=== PATIENT | male | born 1975 | race Two or more races ===

== ENCOUNTER 2017-05-13 02:23 | Observation (INO) | payer OTHER ==
[~2017-05-13] VITALS: Ht 177.8 cm; Wt 96.1 kg
[2017-05-13] VITALS (10 sets, daily range): BP systolic 119–130; BP diastolic 70–89; PULSE 77–96; RESP 18–20; Ht 177.8 cm; Wt 96.1 kg
[2017-05-13] MEDS ORDERED: ALPR0.25 PO (05:25)
[2017-05-13] MEDS ORDERED: VAL2 PO (05:25)
[2017-05-13] MEDS ORDERED: EZET10TA3 PO (05:25)
[2017-05-13] MEDS ORDERED: GEMF600T60 PO (05:25)
[2017-05-13] MEDS ORDERED: VALS160T20 PO (05:25)
[2017-05-13 09:19] LABS: BASOPHILS % 0.4 % (0.0-2.0); EOSINOPHILS # 0.3 10^3/ul (0.0-0.5); EOSINOPHILS % 3.7 % (0.0-7.0); HEMATOCRIT 39.3 % (42.0-52.0); HEMOGLOBIN 12.8 g/dl (14.0-18.0); LYMPHOCYTES # 2.3 10^3/ul (0.8-2.9); LYMPHOCYTES % 29.3 % (15.0-51.0); MEAN CORPUSCULAR HGB CONC 32.6 g/dl (32.0-37.0); MEAN CORPUSCULAR VOLUME 79.9 fl (82.0-101.0); MEAN PLATELET VOLUME 8.8 fl (7.4-10.4); MONOCYTE # 0.7 10^3/ul (0.3-0.9); MONOCYTES % 8.8 % (0.0-11.0); NEUTROPHIL # 4.5 10^3/ul (1.6-7.5); NEUTROPHILS % 57.3 % (39.0-77.0); PLATELET COUNT 336 10^3/UL (140-415); RED BLOOD COUNT 4.92 10^6/ul (4.70-6.10); RED CELL DISTRIBUTION WIDTH 13.4 % (11.5-14.5); WHITE BLOOD COUNT 7.8 10^3/ul (4.8-10.8)
[2017-05-13 09:46] LABS: ALANINE AMINOTRANSFERASE 55 IU/L (13-69); ALBUMIN 3.8 g/dl (3.3-4.9); ALBUMIN/GLOBULIN RATIO 1.46; ALKALINE PHOSPHATASE 55 IU/L (42-121); ANION GAP 14 (8-16); ASPARTATE AMINO TRANSFERASE 28 IU/L (15-46); BILIRUBIN,INDIRECT 0.2 mg/dl (0-1.1); BILIRUBIN,TOTAL 0.2 mg/dl (0.2-1.3); BLOOD UREA NITROGEN 13 mg/dl (7-20); CALCIUM 8.4 mg/dl (8.4-10.2); CARBON DIOXIDE 24 mmol/L (21-31); CHLORIDE 107 mmol/L (97-110); CREATININE 0.77 mg/dl (0.61-1.24); GLUCOSE 94 mg/dl (70-220); POTASSIUM 4.2 mmol/L (3.5-5.1); SODIUM 141 mmol/L (135-144); TOTAL PROTEIN 6.4 g/dl (6.1-8.1)
[2017-05-13 09:53] LABS: D-DIMER < 220.00 ng/ml (<460)
[2017-05-13 09:56] LABS: TROPONIN-I < 0.012 ng/ml (0.00-0.12)
[2017-05-13] MEDS ORDERED: ZOLPIDEM 5 MG TAB PO PRN (14:00)
[2017-05-13] MEDS ORDERED: BISACODYL 10 MG SUPP PR PRN (14:00)
[2017-05-13] MEDS ORDERED: NITROGLYCERIN (SL) 0.4 MG TAB SL PRN (14:00)
[2017-05-13] MEDS ORDERED: clonAZEPAM 0.5 MG TAB PO PRN (14:00)
[2017-05-13] MEDS ORDERED: LORAZEPAM 0.5 MG TAB PO PRN (14:00)
[2017-05-13] MEDS ORDERED: NACL 0.9% 3 ML SYG IV SCH (14:00)
[2017-05-13] MEDS ORDERED: DOCUSATE SODIUM 100 MG CAP PO PRN (14:00)
[2017-05-13] MEDS ORDERED: ACETAMINOPHEN 325 MG TAB PO PRN (14:00)
[2017-05-13] MEDS ORDERED: morphine 2 MG INJ IV PRN (14:00)
[2017-05-13] MEDS ORDERED: MAGNESIUM HYDROXIDE 30ML CUP PO PRN (14:00)
[2017-05-13] MEDS ORDERED: ONDANSETRON 4 MG INJ IV PRN (14:00)
[2017-05-13] MEDS ORDERED: HYDROCODONE/APAP (5/325) TAB PO PRN (14:00)
--- NOTE | 2017-05-13 14:50 | CONS ---
Date/Time of Note Date/Time of Note DATE: 05/13/17 TIME: 14:44 Assessment/Plan Assessment/Plan Additional Assessment/Plan Palpitations and elevated blood pressure History of hypertension History of dyslipidemia -Patient with symptoms of palpitations, pulsations in his neck and chest usually associated with stress and elevated blood pressure. Serial cardiac enzymes have been negative initial troponin at outside hospital emergency room and one done here this morning. Serial ECGs with no significant ischemic abnormalities. Patient denies any symptoms with exertion. Echocardiogram pending. Continue telemetry monitoring. Consultation Date/Type/Reason Admit Date/Time May 13, 2017 at 04:55 Type of Consultation: cv Reason for Consultation Cardiology evaluation Hx of Present Illness This is a 41-year-old male with past medical history of hypertension, dyslipidemia presents with multiple complaints over the past 2 months. Patient does admit to significant increased stressors at home regards to marriage issues and financial issues. He has noticed progressive increase in blood pressure. With his increase in blood pressure, he has been having episodes of palpitations and feeling pulsations in his throat and head. Does at times get shortness of breath with these episodes. He denies exertional chest discomfort. He gets occasional shortness of breath but he does admit to starting tobacco use. His symptoms worsened yesterday after stressful incident at home and his blood pressure as per the patient was 160/120. Because of the above, he came to the emergency room for evaluation care. He is currently feeling better. 12 point review of systems was performed with all pertinent positives and negatives mentioned above and all else is negative Past Medical History Medical History: high cholesterol, hypertension Social History Smoking Status: Current some day smoker Exam/Review of Systems Vital Signs Vitals Vital Signs Date Time Temp Pulse Resp B/P Pulse Ox O2 Delivery O2 Flow Rate FiO2 05/13/17 12:03 83 05/13/17 11:22 97.8 20 121/82 98 05/13/17 05:44 Room Air Exam No apparent distress Constitutional: alert, oriented Head: normocephalic Respiratory: clear to auscultation, normal air movement Cardiovascular: other (S1-S2 heard, no murmurs appreciated), regular rate and rhythm Gastrointestinal: bowel sounds, non-tender, soft Extremities: other (No significant edema) Results Result Diagram: 05/13/17 0849 05/13/17 0849 Results 24 hrs Laboratory Tests Test 05/13/17 08:49 White Blood Count 7.8 Red Blood Count 4.92 Hemoglobin 12.8 L Hematocrit 39.3 L Mean Corpuscular Volume 79.9 L Mean Corpuscular Hemoglobin 26.0 L Mean Corpuscular Hemoglobin Concent 32.6 Red Cell Distribution Width 13.4 Platelet Count 336 Mean Platelet Volume 8.8 Neutrophils % 57.3 Lymphocytes % 29.3 Monocytes % 8.8 Eosinophils % 3.7 Basophils % 0.4 Nucleated Red Blood Cells % 0.0 Neutrophils # 4.5 Lymphocytes # 2.3 Monocytes # 0.7 Eosinophils # 0.3 Basophils # 0.0 Nucleated Red Blood Cells # 0.0 Erythrocyte Sedimentation Rate 2.0 D-Dimer < 220.00 D-Dimer Comment Sodium Level 141 Potassium Level 4.2 Chloride Level 107 Carbon Dioxide Level 24 Anion Gap 14 Blood Urea Nitrogen 13 Creatinine 0.77 Glucose Level 94 Calcium Level 8.4 Total Bilirubin 0.2 Direct Bilirubin 0.00 Indirect Bilirubin 0.2 Aspartate Amino Transf (AST/SGOT) 28 Alanine Aminotransferase (ALT/SGPT) 55 Alkaline Phosphatase 55 Troponin I < 0.012 Total Protein 6.4 Albumin 3.8 Globulin 2.60 Albumin/Globulin Ratio 1.46 Medications Medications Current Medications Ondansetron HCl (Zofran Inj) 4 mg Q6H PRN IV NAUSEA AND/OR VOMITING; Start at 14:00 Aspirin (Aspirin) 81 mg DAILY PO ; Start 05/14/17 at 09:00 Nitroglycerin (Nitroglycerin (Sl Tab) 0.4 Mg) 1 tab Q5M PRN SL CHEST PAIN; Start 05/13/17 at 14:00 Acetaminophen (Tylenol Tab) 650 mg Q6H PRN PO PAIN LEVEL 1-3 OR FEVER; Start 05/13/17 at 14:00 Acetaminophen/ Hydrocodone Bitart ([place] (5/325)) 1 tab Q6H PRN PO PAIN LEVEL 4 -6; Start 05/13/17 at 14:00 Morphine Sulfate (morphine) 2 mg Q4H PRN IV PAIN LEVEL 7-10; Start 05/13/17 at 14:00 Zolpidem Tartrate (Ambien) 5 mg QHS PRN PO INSOMNIA; Start 05/13/17 at 14:00 Docusate Sodium (Colace) 100 mg Q12H PRN PO CONSTIPATION; Start 05/13/17 at 14 :00 Magnesium Hydroxide (Milk Of Mag) 30 ml DAILY PRN PO CONSTIPATION; Start 05/13 at 14:00 Bisacodyl (Dulcolax Supp) 10 mg DAILY PRN [place] CONSTIPATION; Start 05/13/17 at 14:00 Famotidine (Pepcid) 20 mg Q12 PO ; Start 05/13/17 at 21:00 Enoxaparin Sodium (Lovenox) 40 mg DAILY SC ; Start 05/14/17 at 09:00 Clonazepam (Klonopin) 0.5 mg Q8H PRN PO ANXIETY; Start 05/13/17 at 14:00 Procedures Procedures ECG demonstrates sinus rhythm, normal QRS duration, no significant ST abnormalities Ken Mace DO May 13, 2017 14:50
--- NOTE | 2017-05-13 14:51 | HP ---
Date/Time of Note Date/Time of Note DATE: 05/13/17 TIME: 14:35 Assessment/Plan VTE Prophylaxis VTE Prophylaxis Intervention: LMWH Lines/Catheters IV C[facility]ter Type (from [facility] Saline Lock Assessment/Plan Assessment/Plan 41-year-old male with: 1. Palpitations, sensation of fluttering versus chest pressure. He does have a couple of risk factors for coronary artery disease but he has been ruled out for acute coronary syndrome so far, his symptoms are fairly atypical, CT angiogram is negative. 2D echocardiogram pending. Dr. Mace has been consulted , will follow up further recommendations 2. Hypertension: Continue valsartan 3. Hyperlipidemia: Check fasting lipid panel, continue Zetia, gemfibrozil, fish oil. 4. Anxiety, stressful conditions at home currently: Trial of Klonopin as needed anxiety 5. Tobacco use: Patient has been smoking more under stress, will offer nicotine patch. He needs to quit. 6. Alcohol use: Also has been drinking a little more with the recent stressful situation at home, he agrees to cut down. Prophylaxis: Lovenox for DVT prophylaxis, Pepcid for GI prophylaxis Disposition: Monitor overnight, blood pressure control, 2D echocardiogram pending, further recommendations per cardiology. HPI/ROS Admit Date/Time Admit Date/Time May 13, 2017 at 04:55 Hx of Present Illness Chief complaint: Palpitations, chest pressure History of presenting illness: This is a 41-year-old male with history of anxiety disorder, hyperlipidemia, hypertension usually takes benzodiazepines, Xanax, as needed who presented at [facility] with reported hypertension, systolic blood pressure 160s and diastolic 120s and also ongoing palpitations and feeling of fluttering throughout his chest, not really chest pressure Patient denies dizziness, fevers, chills. He reports that earlier with elevated blood pressure, while at home, he had some tinnitus in his ears and headache. He denies any recent pulmonary infection or upper respiratory infection. He does have hypertension and hyperlipidemia, denies a family history of coronary artery disease as far as he knows all previous diagnosis of coronary artery disease. Patient has been under a lot of stress over the past 2 months. He has been more or less self medicating with Xanax as needed. At [facility], he had a CT angiogram of the chest which was negative for any acute findings, laboratory data were within normal, first troponin was negative last night. Here at [facility], subsequent laboratory data including a repeat troponin this morning has been negative. EKG shows sinus rhythm, at [facility] EKG did show sinus tachycardia in the low 100s. Patient's blood pressure is much better control. He is asymptomatic currently. Cardiology has been consulted, echocardiogram is pending. Cardiology will evaluate and see if patient does need stress test. ROS Constitutional: no complaints Eyes: no complaints ENT: other (Tinnitus while blood pressure was elevated.) Respiratory: no complaints Cardiovascular: other (Sensation of fluttering under his chest), palpitations Gastrointestinal: no complaints Genitourinary: no complaints Musculoskeletal: no complaints Skin: no complaints Neurologic: no complaints Endocrine: no complaints Psychological: no complaints PMH/Family/Social Past Medical History Anxiety disorder, Medical History: high cholesterol, hypertension Past Surgical History Past Surgical Hx: no surgical history Family History Significant Family History: hypertension (He smokes a little more than 1/2 pack a day) Social History Alcohol Use: other (Alcohol consumption daily but not in heavy quantities) Smoking Status: Current some day smoker Drug Use: none Exam/Review of Systems Vital Signs Vitals Vital Signs Date Time Temp Pulse Resp B/P Pulse Ox O2 Delivery O2 Flow Rate FiO2 05/13/17 12:03 83 05/13/17 11:22 97.8 20 121/82 98 05/13/17 05:44 Room Air Exam Constitutional: alert, oriented, well developed Respiratory: clear to auscultation, normal air movement Cardiovascular: nl pulses, regular rate and rhythm Gastrointestinal: non-tender, soft Musculoskeletal: nl extremities to inspection Extremities: normal pulses, other (No edema, clubbing or cyanosis) Neurological: PLUMBER APPRENTICE II-XII intact, nl mental status, nl speech, nl strength Labs Result Diagram: 05/13/17 0849 05/13/17 0849 Medications Medications Current Medications Ondansetron HCl (Zofran Inj) 4 mg Q6H PRN IV NAUSEA AND/OR VOMITING; Start at 14:00 Aspirin (Aspirin) 81 mg DAILY PO ; Start 05/14/17 at 09:00 Nitroglycerin (Nitroglycerin (Sl Tab) 0.4 Mg) 1 tab Q5M PRN SL CHEST PAIN; Start 05/13/17 at 14:00 Acetaminophen (Tylenol Tab) 650 mg Q6H PRN PO PAIN LEVEL 1-3 OR FEVER; Start 05/13/17 at 14:00 Acetaminophen/ Hydrocodone Bitart ([place] (5/325)) 1 tab Q6H PRN PO PAIN LEVEL 4 -6; Start 05/13/17 at 14:00 Morphine Sulfate (morphine) 2 mg Q4H PRN IV PAIN LEVEL 7-10; Start 05/13/17 at 14:00 Zolpidem Tartrate (Ambien) 5 mg QHS PRN PO INSOMNIA; Start 05/13/17 at 14:00 Docusate Sodium (Colace) 100 mg Q12H PRN PO CONSTIPATION; Start 05/13/17 at 14 :00 Magnesium Hydroxide (Milk Of Mag) 30 ml DAILY PRN PO CONSTIPATION; Start 05/13 at 14:00 Bisacodyl (Dulcolax Supp) 10 mg DAILY PRN [place] CONSTIPATION; Start 05/13/17 at 14:00 Famotidine (Pepcid) 20 mg Q12 PO ; Start 05/13/17 at 21:00 Enoxaparin Sodium (Lovenox) 40 mg DAILY SC ; Start 05/14/17 at 09:00 Clonazepam (Klonopin) 0.5 mg Q8H PRN PO ANXIETY; Start 05/13/17 at 14:00 Procedures Procedures EKG; sinus rhythm no acute changes. 2D echocardiogram pending ANISA CARBALLO May 13, 2017 14:47
--- NOTE | 2017-05-13 15:43 | RADRPT ---
Echocardiogram Report Patient Name: JOHN KO Gender: Male Date: 1975 Study Date: 13-May-2017 Processing Manager: Sebastian Brody RDCS Location: [facility] Ref. Physician: RAYMOND CARBALLO Quality: Good Procedures: Transthoracic echocardiogram with complete 2D, M-Mode, and doppler examination. Indications: Chest Pain. 2D/M Mode Doppler Measurement Value Normal Ranges Measurement Value Normal Ranges LVIDd 2D 4.4 3.5 - 5.6 cm AV Peak Dayron 1.0 m/sec LVIDs 2D 2.6 2.1 - 4.1 cm AV Peak PG 3.9 mmHg LVPWd 2D 0.9 0.6 - 1.1 cm LVOT Peak Dayron 0.9 m/sec IVSd 2D 0.9 0.6 - 1.1 cm LVOT Peak PG 3.4 mmHg AoR Diam 2D 3.4 2.0 - 3.7 cm MV E Peak Dayron 0.6 m/sec EDV 2D 88.5 cm3 MV A Peak Dayron 0.7 m/sec ESV 2D 17.4 cm3 MV E/A 0.9 LA Dimen 2D 2.8 2.3 - 4.0 cm MV Decel Time 135 msec MV Decel [place] 4 MV E/A 0.9 Findings Left Ventricle: Normal left ventricular systolic function. Normal left ventricular cavity size. Normal left ventricular wall thickness. Ejection fraction is visually estimated at 55 %. Tissue Doppler/Mitral Doppler indices are consistent with impaired relaxation (Stage I diastolic dysfunction). Right Ventricle: Normal right ventricular size. Normal right ventricular systolic function. Left Atrium: The left atrium is normal in size. Right Atrium: The right atrium is normal in size. Mitral Valve: Normal appearance and function of the mitral valve with trace physiologic regurgitation. Aortic Valve: Normal appearance of the aortic valve. No significant aortic stenosis or insufficiency. Tricuspid Valve: Normal appearance and function of the tricuspid valve with trace physiologic regurgitation. Pulmonic Valve: Normal pulmonic valve appearance. Pericardium: Normal pericardium with no significant pericardial effusion. Aorta: Normal aortic root. IVC: Normal size and normal respiratory collapse consistent with normal right atrial pressure. Conclusions 1.Normal left ventricular systolic function. Normal left ventricular cavity size. Normal left ventricular wall thickness. Ejection fraction is visually estimated at 55 %. Tissue Doppler/Mitral Doppler indices are consistent with impaired relaxation (Stage I diastolic dysfunction). 2.Normal right ventricular size. Normal right ventricular systolic function. 3.The left atrium is normal in size. 4.The right atrium is normal in size. 5.No significant valvular stenosis or regurgitation seen. 6.Normal pericardium with no significant pericardial effusion. Electronically Signed By: Ken Mace 13-May-2017 15:42:50 -0800 Patient Name: JOHN KO Study Date: 13-May-[id number]
[2017-05-13] MEDS: FAMOTIDINE 20 MG TAB PO SCH (20:23)
[2017-05-13] MEDS: GEMFIBROZIL 600 MG TAB PO SCH (20:23)
[2017-05-13] MEDS ORDERED: EZETIMIBE 10 MG TAB PO SCH (21:00)
[2017-05-14] VITALS (10 sets, daily range): BP systolic 92–123; BP diastolic 52–84; PULSE 77–90; RESP 16–20
[2017-05-14 08:36] LABS: CREATININE 0.96 mg/dl (0.61-1.24); POTASSIUM 4.3 mmol/L (3.5-5.1)
[2017-05-14] MEDS: FAMOTIDINE 20 MG TAB PO SCH (08:38)
[2017-05-14] MEDS: GEMFIBROZIL 600 MG TAB PO SCH (08:38)
[2017-05-14] MEDS ORDERED: VALSARTAN 80 MG TAB PO SCH (09:00)
[2017-05-14] MEDS ORDERED: ASPIRIN 81 MG TAB PO SCH (09:00)
[2017-05-14] MEDS ORDERED: ENOXAPARIN 40 MG/0.4 ML SYG SC SCH (09:00)
[2017-05-14] MEDS ORDERED: IBUPROFEN 200 MG TAB PO ONE (15:30)
--- NOTE | 2017-05-14 15:40 | PN ---
Date/Time of Note Date/Time of Note DATE: 05/14/17 TIME: 15:35 Assessment/Plan VTE Prophylaxis VTE Prophylaxis Intervention: LMWH, SCD's Lines/Catheters IV Catheter Type (from Nrs): Saline Lock Assessment/Plan Assessment/Plan 41-year-old male with: 1. Palpitations, sensation of fluttering versus chest pressure. Patient has been ruled out for acute coronary syndrome. CT angiogram is negative. 2D echocardiogram within normal. Appreciate Dr. Mace's recommendations. Patient to be discharged home. 2. Hypertension: Continue valsartan 3. Hyperlipidemia: Continue Zetia, gemfibrozil, fish oil. 4. Anxiety, stressful conditions at home currently: We will give him a prescription for Klonopin as needed for anxiety 5. Tobacco use: He needs to quit and is agreeable to do so 6. Alcohol use: Also has been drinking a little more with the recent stressful situation at home, he agrees to cut down. Prophylaxis: Lovenox for DVT prophylaxis, Pepcid for GI prophylaxis Disposition: Discharge home today, follow-up with primary care physician. Patient may need to follow-up with psychologist as an outpatient for stress and anxiety management especially in the current stressful situation he is living through. Subjective 24 Hr Interval Summary Free Text/Dictation Patient doing well, no further palpitations or chest pressure. Echocardiogram within normal. Will proceed with discharge home. Exam/Review of Systems Vital Signs Vitals Vital Signs Date Time Temp Pulse Resp B/P Pulse Ox O2 Delivery O2 Flow Rate FiO2 05/14/17 12:13 88 05/14/17 12:03 98.0 18 122/84 92 05/13/17 05:44 Room Air Intake and Output 05/13/17 05/13/17 05/14/17 15:00 23:00 07:00 Intake Total 1000 ml Balance 1000 ml Exam Constitutional: alert, oriented, well developed Respiratory: clear to auscultation, normal air movement Cardiovascular: nl pulses, regular rate and rhythm Musculoskeletal: nl extremities to inspection, nl gait and stance Extremities: normal pulses, other (No edema, clubbing or cyanosis) Neurological: RETAIL ZONE SPECIALIST II-XII intact, nl mental status, nl speech, nl strength Results Result Diagram: 05/13/17 0849 05/14/17 0803 Results 24 hrs Laboratory Tests Test 05/14/17 08:03 Sodium Level 142 Potassium Level 4.3 Chloride Level 103 Carbon Dioxide Level 29 Anion Gap 14 Blood Urea Nitrogen 17 Creatinine 0.96 Glucose Level 105 Calcium Level 9.0 Magnesium Level 1.9 Medications Medications Current Medications Ondansetron HCl (Zofran Inj) 4 mg Q6H PRN IV NAUSEA AND/OR VOMITING; Start at 14:00 Aspirin (Aspirin) 81 mg DAILY PO Last administered on 05/14/17 08:37; Admin Dose 81 MG; Start 05/14/17 at 09:00 Nitroglycerin (Nitroglycerin (Sl Tab) 0.4 Mg) 1 tab Q5M PRN SL CHEST PAIN; Start 05/13/17 at 14:00 Acetaminophen (Tylenol Tab) 650 mg Q6H PRN PO PAIN LEVEL 1-3 OR FEVER; Start 05/13/17 at 14:00 Acetaminophen/ Hydrocodone Bitart ([place] (5/325)) 1 tab Q6H PRN PO PAIN LEVEL 4 -6; Start 05/13/17 at 14:00 Morphine Sulfate (morphine) 2 mg Q4H PRN IV PAIN LEVEL 7-10; Start 05/13/17 at 14:00 Zolpidem Tartrate (Ambien) 5 mg QHS PRN PO INSOMNIA; Start 05/13/17 at 14:00 Docusate Sodium (Colace) 100 mg Q12H PRN PO CONSTIPATION; Start 05/13/17 at 14 :00 Magnesium Hydroxide (Milk Of Mag) 30 ml DAILY PRN PO CONSTIPATION; Start 05/13 at 14:00 Bisacodyl (Dulcolax Supp) 10 mg DAILY PRN [place] CONSTIPATION; Start 05/13/17 at 14:00 Famotidine (Pepcid) 20 mg Q12 PO Last administered on 05/14/17 08:38; Admin Dose 20 MG; Start 05/13/17 at 21:00 Enoxaparin Sodium (Lovenox) 40 mg DAILY SC Last administered on 05/14/17 08: 40; Admin Dose 40 MG; Start 05/14/17 at 09:00 Clonazepam (Klonopin) 0.5 mg Q8H PRN PO ANXIETY Last administered on 17:27; Admin Dose 0.5 MG; Start 05/13/17 at 14:00 EZETIMIBE (Zetia) 10 mg HS PO Last administered on 05/13/17 20:23; Admin Dose 10 MG; Start 05/13/17 at 21:00 Gemfibrozil (Lopid) 600 mg BID PO Last administered on 05/14/17 08:38; Admin Dose 600 MG; Start 05/13/17 at 21:00 Valsartan (Diovan) 80 mg DAILY PO Last administered on 05/14/17 08:37; Admin Dose 80 MG; Start 05/14/17 at 09:00 Procedures Procedures Echocardiogram Report Patient Name: JOHN KO Gender: Male Date: 1975 Study Date: 13-May-2017 Computer Customer Support Specialist: Sebastian Brody RDCS Location: [facility] Ref. Physician: RAYMOND CARBALLO Quality: Good Procedures: Transthoracic echocardiogram with complete 2D, M-Mode, and doppler examination. Indications: Chest Pain. 2D/M Mode Doppler Measurement Value Normal Ranges Measurement Value Normal Ranges LVIDd 2D 4.4 3.5 - 5.6 cm AV Peak Dayron 1.0 m/sec LVIDs 2D 2.6 2.1 - 4.1 cm AV Peak PG 3.9 mmHg LVPWd 2D 0.9 0.6 - 1.1 cm LVOT Peak [place] 0.9 m/sec IVSd 2D 0.9 0.6 - 1.1 cm LVOT Peak PG 3.4 mmHg AoR Diam 2D 3.4 2.0 - 3.7 cm MV E Peak Day[place] 0.6 m/sec EDV 2D 88.5 cm3 MV A Peak [place] 0.7 m/sec ESV 2D 17.4 cm3 MV E/A 0.9 LA Dimen 2D 2.8 2.3 - 4.0 cm MV Decel Time 135 msec MV Decel [place] 4 MV E/A 0.9 Findings Left Ventricle: Normal left ventricular systolic function. Normal left ventricular cavity size. Normal left ventricular wall thickness. Ejection fraction is visually estimated at 55 %. Tissue Doppler/Mitral Doppler indices are consistent with impaired relaxation (Stage I diastolic dysfunction). Right Ventricle: Normal right ventricular size. Normal right ventricular systolic function. Left Atrium: The left atrium is normal in size. Right Atrium: The right atrium is normal in size. Mitral Valve: Normal appearance and function of the mitral valve with trace physiologic regurgitation. Aortic Valve: Normal appearance of the aortic valve. No significant aortic stenosis or insufficiency. Tricuspid Valve: Normal appearance and function of the tricuspid valve with trace physiologic regurgitation. Pulmonic Valve: Normal pulmonic valve appearance. Pericardium: Normal pericardium with no significant pericardial effusion. Aorta: Normal aortic root. IVC: Normal size and normal respiratory collapse consistent with normal right atrial pressure. Conclusions 1. Normal left ventricular systolic function. Normal left ventricular cavity size. Normal left ventricular wall thickness. Ejection fraction is visually estimated at 55 %. Tissue Doppler/Mitral Doppler indices are consistent with impaired relaxation (Stage I diastolic dysfunction). 2. Normal right ventricular size. Normal right ventricular systolic function. 3. The left atrium is normal in size. 4. The right atrium is normal in size. 5. No significant valvular stenosis or regurgitation seen. 6. Normal pericardium with no significant pericardial effusion. Electronically Signed By: Ken Mace 13-May-2017 15:42:50 -0800 ANISA CARBALLO May 14, 2017 15:40
--- NOTE | 2017-05-14 15:41 | PDOCDIS ---
Discharge Instructions CONDITION Patient Condition: Stable HOME CARE INSTRUCTIONS: Diet Instructions: Reduced Sodium ACTIVITY: Activity Restrictions: No Restrictions FOLLOW UP/APPOINTMENTS Follow-up Plan Follow-up with primary care physician within 1 week Referral to psychology as needed for anxiety/stress management ANISA CARBALLO May 14, 2017 15:41
[2017-05-14] MEDS ORDERED: CLON0.5T4 PO (15:44)
[2017-05-14] MEDS ORDERED: IBUPROFEN 400 MG TAB PO SCH (16:12)
[2017-05-14 16:14] LABS: BARBITURATES Negative (NEGATIVE); BENZODIAZEPINES Negative (NEGATIVE); CANNABINOIDS Negative (NEGATIVE); COCAINE Negative (NEGATIVE); OPIATES Negative (NEGATIVE)
--- NOTE | 2017-05-14 21:48 | RADRPT ---
Vent Rate: 81 bpm RR Interval: 0 msec IA Interval: 160 msec QRS Duration: 90 msec QT Interval: 352 msec QTC Interval: 408 msec P-R-T [place]: 50 - 56 - 57 degrees Normal sinus rhythm Septal infarct , age undetermined Abnormal ECG Electronically Signed By: Ken Mace [id number]
== END 2017-05-14 17:08 | disposition home or self-care (01) ==
LOC: UNDOADMIN 02:23 → TEL 02:23 → INTOOBSV 04:55 → TEL 04:55
PROVIDERS: ADMIT Internal Medicine; ATTEND Internal Medicine
DX: R00.2 Palpitations (principal); R07.9 Chest pain, unspecified; I10 Essential (primary) hypertension; E78.5 Hyperlipidemia, unspecified; E78.00 Pure hypercholesterolemia, unspecified; F41.9 Anxiety disorder, unspecified; Z72.0 Tobacco use; F10.20 Alcohol dependence, uncomplicated; Z82.49 Family history of ischemic heart disease and other diseases of the circulatory system
CPT/HCPCS: 80048; 80053; 80307; 83735; 84484; 85025; 85378; 85651; 93005; 93306; J1650; Z7500; Z7610; G0378